=== PATIENT | male | born 1995 | race Caucasian/White ===

== ENCOUNTER 2019-04-02 17:18 | Inpatient (IN) | payer OTHER, BC ==
[~2019-04-02] VITALS: Ht 190.5 cm; Wt 77.2 kg
[~2019-04-02 17:18] MED LIST: AMOX1TAB12 PO; AMOX1TAB64 PO; AMOX875T PO; CEFU250T66 PO; FLUT16SP24 NAS; FLUT9.9S NS; HYDR-3237 PO; METH4TAB6 PO; None per pt
[2019-04-02] MEDS ORDERED: VANCOMYCIN 1,700 MG in SODIUM CHLORIDE 0.9% 250 ML IV ONE (18:30)
[2019-04-02] MEDS ORDERED: VANCOMYCIN PER PHARMACY MC PRN ×2 (18:30→22:00)
[2019-04-02] MEDS ORDERED: AMPICILLIN/SULBACTAM 3 GM in SODIUM CHLORIDE 0.9% 100 ML IV ONE (18:30)
[2019-04-02 18:50] LABS: BASOPHILS # (AUTO) 0.03 x10^3/uL (0-0.1); BASOPHILS % (AUTO) 0 % (0-1); EOSINOPHILS # (AUTO) 0.32 x10^3/uL (0-0.4); EOSINOPHILS % (AUTO) 4 % (1-7); LYMPHOCYTES # (AUTO) 2.44 x10^3/uL (1-3.4); LYMPHOCYTES % (AUTO) 31 % (22-44); MD NO; MEAN CORPUSCULAR HEMOGLOBIN 32.3 pg (27.5-34.5); MEAN CORPUSCULAR HGB CONC 33.9 g/dL (33.2-36.2); MEAN CORPUSCULAR VOLUME 95.5 fL (81-97); MONOCYTES # (AUTO) 0.52 x10^3/uL (0.2-0.8); MONOCYTES % (AUTO) 7 % (2-9); NEUTROPHILS # (AUTO) 4.69 x10^3/uL (1.8-6.8); NEUTROPHILS % (AUTO) 59 % (42-75); PLATELET COUNT 148 x10^3/uL (130-400); RED BLOOD COUNT 4.95 x10^6/uL (4.38-5.82); RED CELL DISTRIBUTION WIDTH 12.3 % (9.4-14.8)
[2019-04-02 18:55] LABS: ANION GAP 7 mmol/L (5-15); CALCIUM 8.9 mg/dL (8.5-10.1); CHLORIDE 106 mmol/L (98-107); CREATININE 1.05 mg/dL (0.7-1.3)
[2019-04-02] MEDS ORDERED: OMNIPAQUE 350 MG/ML, 100ML BOTTLE ONE (20:21)
[2019-04-02] MEDS ORDERED: SODIUM CHLORIDE FLUSH 10ML SYR IVF PRN (20:30)
[2019-04-02 21:33] VITALS: BP 130/87
[2019-04-02] MEDS ORDERED: ONDANSETRON 2MG/ML, 2ML IVPush PRN (22:00)
[2019-04-02] MEDS ORDERED: ACETAMINOPHEN 325 MG TABLET PO PRN (22:00)
[2019-04-02] MEDS: KETOROLAC 30 MG/1 ML IV PRN (22:14)
[2019-04-02] MEDS ORDERED: PHARMACOKINETIC MONITORING MC PRN (22:30)
[2019-04-03] MEDS: AMPICILLIN/SULBACTAM 3 GM in SODIUM CHLORIDE 0.9% 100 ML IV SCH ×4 (01:11→18:33)
[2019-04-03 01:43] VITALS: BP 102/61
[2019-04-03 07:44] VITALS: BP 109/62
[2019-04-03] MEDS: VANCOMYCIN 1,500 MG in SODIUM CHLORIDE 0.9% 250 ML IV SCH ×2 (08:22→20:35)
[2019-04-03 12:19] VITALS: BP 128/73
[2019-04-03] MEDS: KETOROLAC 30 MG/1 ML IV PRN ×2 (12:27→22:36)
[2019-04-03 19:58] VITALS: BP 124/76
[2019-04-04] MEDS: AMPICILLIN/SULBACTAM 3 GM in SODIUM CHLORIDE 0.9% 100 ML IV SCH ×3 (00:55→12:36)
[2019-04-04 01:28] VITALS: BP 129/82
[2019-04-04 08:12] VITALS: BP 100/58
[2019-04-04] MEDS: VANCOMYCIN 1,500 MG in SODIUM CHLORIDE 0.9% 250 ML IV SCH (08:55)
[2019-04-04] MEDS: KETOROLAC 30 MG/1 ML IV PRN (11:20)
[2019-04-04] MEDS ORDERED: LEVO750T6 PO (11:57)
== END 2019-04-04 14:52 | disposition home or self-care (01) | DRG 603 ==
LOC: ED 18:50 → EDIP 20:27 → 3N 21:30 → DCLOUNGE 04-04 14:44
PROVIDERS: ADMIT Emergency Medicine; ATTEND Emergency Medicine
DX: L03.213 Periorbital cellulitis (principal); J32.0 Chronic maxillary sinusitis; J32.1 Chronic frontal sinusitis; J01.00 Acute maxillary sinusitis, unspecified
CPT/HCPCS: 36415; 70487; 80048; 80202; 82040; 85025; 99285; G0378; J0295; J1885; J3370; Q9967; J7050

== ENCOUNTER 2019-09-14 21:08 | Emergency (ER) | payer OTHER, BC ==
[~2019-09-14] VITALS: Ht 190.5 cm; Wt 87.0 kg
[~2019-09-14 21:08] MED LIST changes: +LEVO750T6 PO
[2019-09-14 21:29] VITALS: BP 138/83
[2019-09-14] MEDS ORDERED: IBUPROFEN 600 MG TABLET ONE (21:47)
[2019-09-14] MEDS ORDERED: LIDOCAINE-MPF 1%, 5ML ONE (21:47)
[2019-09-14] MEDS ORDERED: HYDROcodone/APAP 5/325 TABLET ONE (21:48)
[2019-09-14] MEDS ORDERED: HYDROcodone/APAP 5/325 TABLET PO PRN (22:00)
[2019-09-14] MEDS ORDERED: LIDOCAINE-MPF 1%, 5ML INFIL ONE (22:00)
[2019-09-14] MEDS ORDERED: IBUPROFEN 600 MG TABLET PO ONE (22:00)
[2019-09-14] MEDS ORDERED: NEOSPORIN OINT. PKT 1 PACKET ONE (23:15)
== END 2019-09-14 23:30 | disposition home or self-care (01) ==
LOC: ED 23:00
DX: S91.311A Laceration without foreign body, right foot, initial encounter (principal); S93.491A Sprain of other ligament of right ankle, initial encounter; X58.XXXA Exposure to other specified factors, initial encounter; Y93.89 Activity, other specified; Y92.328 Other athletic field as the place of occurrence of the external cause; Y99.8 Other external cause status
CPT/HCPCS: 12001; 99284